=== PATIENT | female | born 1975 | race Caucasian/White ===

== ENCOUNTER 2017-08-10 07:01 | Emergency (ER) | payer BC ==
[2017-08-10] MEDS ORDERED: ASPIRIN PO ONE (07:47)
[2017-08-10] MEDS ORDERED: TORADOL IV ONE (11:11)
--- NOTE | 2017-08-10 11:16 | Emergency Department Report ---
Blank Doc - Documentation Documentation: 42 yo female with no past medical history presents to the hospital complaining of chest pain and headache since 5 AM. Pain is across the upper chest described as a pressure that is constant but improved and no longer present. Pain initially 5/10 upon arrival. Patient also complains of posterior headache without neck pain. She denies nausea, vomiting, or diaphoresis. She does complain of some mild shortness of breath. She denies calf tenderness, edema, recent travel, control use, history of PE/DVT. She denies tobacco use but does have a family history of CAD. Her mother required a stent in her late 50s. Patient received IV and aspirin in route. Exam Neck: No meningismus Neuro: No motor or sensory deficit Chest: Nontender Legs: no calf tenderness or edema Toradol ordered for pain Labs pending Chest x-ray pending EKG: Sinus rate [address] [place] or LVH. Midlevel to follow
[2017-08-10 11:57] LABS: Chol/HDL Ratio 4.4 %
[2017-08-10 11:58] LABS: Hemoglobin 12.6 gm/dl (10.1-14.3); Mean Corpuscular HGB Conc 34 % (30-34); Mean Corpuscular Hemoglobin 32 pg (28-32); Mean Corpuscular Volume 93 fl (79-97); Platelet Count 273 K/mm3 (140-440); Red Blood Count 3.96 M/mm3 (3.65-5.03); Red Cell Distribution Width 12.7 % (13.2-15.2)
[2017-08-10 12:40] LABS: BUN/Creatinine Ratio 20; Blood Urea Nitrogen 12 mg/dL (7-17); Calcium 9.1 mg/dL (8.4-10.2); Hemolysis Index 20
--- NOTE | 2017-08-10 12:51 | XRay Report ---
CHEST 2 VIEWS INDICATION: Chest pain. COMPARISON: None similar at this institution. FINDINGS: PA and lateral chest radiographs demonstrate normal cardiomediastinal silhouette. Clear lungs. Intact bones. CONCLUSION: No acute disease in the chest. Thank you for the opportunity to participate in this patient's care.
[2017-08-10 12:58] LABS: Platelet Estimate Consistent w Auto; RBC Morphology Normal; Total Cells Counted 100
--- NOTE | 2017-08-10 13:58 | Emergency Department Report ---
ED Chest Pain HPI - General Chief Complaint: Chest Pain Stated Complaint: CHEST PAIN Time Seen by Provider: 08/10/17 11:03 Source: patient, EMS Mode of arrival: Ambulatory Limitations: Language Barrier - History of Present Illness Initial Comments: This is a 42-year-old female nontoxic, well nourished in appearance, no acute signs of distress presents to the ED with c/o of chest pain and headache that started this morning at 5 AM. Patient describes chest pain as aching across upper chest. Patient currently stated in the ED that her headache and chest pain has resolved since medical treatment. Patient stated initially the pain was a 5 out of 10 upon arrival. Patient otherwise denies any radiation of pain. Patient denies any calf pain or calf tenderness. Denies any fever, chills, nausea, vomiting, stiff neck, neck pain, abdominal pain, back pain, numbness or tingling. Patient denies any recent travels or long car ride. Patient describes headache as a gradual onset but denies any thunderclap headache. Patient denies any visual changes. Patient stated that all symptoms has resolved. Patient denies any allergies or significant past medical history. Patient denies taking control. Patient denies any recent traumas, long car rides, or recent hospital stays. MD Complaint: chest pain -: This morning Pain Location: other (upper chest) Pain Radiation: none Severity: mild Quality: aching Consistency: now resolved Improves With: nothing Worsens With: nothing re: denies: nausea, vomting, diaphoresis, dyspnea, sense of impending doom Other Symptoms: denies: cough, fever, syncope, rash, acid taste in mouth, leg swelling, palpitations, burping Treatments Prior to Arrival: aspirin Aspirin use within the Past 7 Days: (0) No - Related Data On Oral Contraceptives: No Previous Rx's Medication Instructions Recorded Last Taken Type Ibuprofen [Motrin] 600 mg PO Q8H PRN #30 tablet 08/10/17 Unknown Rx Allergies Allergy/AdvReac Type Severity Reaction Status Date / Time No Known Allergies Allergy Verified 08/10/17 11:10 Heart Score - HEART Score History: Slightly suspicious EKG: Normal Age: < 45 Risk factors: No known risk factors Troponin: < normal limit HEART Score: 0 ED Review of Systems ROS: Stated complaint: CHEST PAIN Other details as noted in HPI Constitutional: denies: chills, fever Eyes: denies: eye pain, eye discharge, vision change ENT: denies: ear pain, throat pain Respiratory: denies: cough, shortness of breath, wheezing Cardiovascular: chest pain. denies: palpitations Endocrine: no symptoms reported Gastrointestinal: denies: abdominal pain, nausea, diarrhea Genitourinary: denies: urgency, dysuria, discharge Musculoskeletal: denies: back pain, joint swelling, arthralgia Skin: denies: rash, lesions Neurological: headache. denies: weakness, paresthesias Psychiatric: denies: anxiety, depression Hematological/Lymphatic: denies: easy bleeding, easy bruising ED Past Medical Hx - Past Medical History Previous Medical History?: Yes Additional medical history: Vaginal delivery x 2 - Surgical History Past Surgical History?: No - Social History Smoking Status: Never Smoker Substance Use Type: None - Medications Home Medications: Home Medications Medication Instructions Recorded Confirmed Last Taken Type Ibuprofen [Motrin] 600 mg PO Q8H PRN #30 tablet 08/10/17 Unknown Rx ED Physical Exam - General Limitations: Language Barrier General appearance: alert, in no apparent distress - Head Head exam: Present: atraumatic, normocephalic - Eye Eye exam: Present: normal appearance, PERRL, EOMI Pupils: Present: normal accommodation - ENT ENT exam: Present: normal exam, normal orophraynx, mucous membranes moist - Neck Neck exam: Present: normal inspection, full ROM. Absent: tenderness, meningismus, lymphadenopathy - Respiratory Respiratory exam: Present: normal lung sounds bilaterally. Absent: respiratory distress, wheezes, rales, rhonchi, stridor, chest wall tenderness, accessory muscle use, decreased breath sounds, prolonged expiratory - Cardiovascular Cardiovascular Exam: Present: regular rate, normal rhythm, normal heart sounds. Absent: bradycardia, tachycardia, irregular rhythm, systolic murmur, diastolic murmur, rubs, gallop - GI/Abdominal GI/Abdominal exam: Present: soft, normal bowel sounds. Absent: distended, tenderness, guarding, rebound, rigid, diminished bowel sounds - Rectal Rectal exam: Present: deferred - Extremities Exam Extremities exam: Present: normal inspection, full ROM, normal capillary refill. Absent: tenderness - Back Exam Back exam: Present: normal inspection, full ROM. Absent: tenderness, CVA tenderness (R), CVA tenderness (L), muscle spasm, paraspinal tenderness, vertebral tenderness, rash noted - Neurological Exam Neurological exam: Present: alert, oriented X3, CN II-XII intact, normal gait - Expanded Neurological Exam Expanded Patient oriented to: Present: person, place, time Cranial nerves: EOM's Intact: Normal, Gag Reflex: Normal, Facial Sensation: Normal Cerebellar function: Finger to Nose: Normal Upper motor neuron: Pronator Drift: Normal, Sensory Extinction: Normal Sensory exam: Upper Extremity Light Touch: Normal, Upper Extremity Pin Prick: Normal, Upper Extremity Temperature: Normal, UE 2 Point Discrimination: Normal, Lower Extremity Light Touch: Normal, Lower Extremity Pin Prick: Normal, Lower Extremity Temperature: Normal, LE 2 Point Discrimination: Normal Motor strength exam: RUE: 5, LUE: 5, RLE: 5, LLE: 5 Best Eye Response ([place]): (1) no response Best Motor Response ([place]): (6) obeys commands Best Verbal Response ([place]): (5) oriented [place] Total: 12 - Psychiatric Psychiatric exam: Present: normal affect, normal mood - Skin Skin exam: Present: warm, dry, intact, normal color. Absent: rash ED Course Vital Signs 08/10/17 08/10/17 07:42 11:52 Temperature 98.1 F Pulse Rate 87 Respiratory 18 18 Rate Blood Pressure 113/69 O2 Sat by Pulse 95 Oximetry - Reevaluation(s) Reevaluation #1: 08/10/17 13:56 Patient is speaking in full sentences with no signs of distress noted. - Consultations Consultation #1: 08/10/17 13:56 Patient has been consulted with Dr. Canales about patient history, physical exam, and labs and examined and screened patient and agrees to ED plan of care and discharge plan of care. PARVIZ score - Parviz Score Age > 65: (0) No Aspirin use within the Past 7 Days: (0) No 3 or more CAD Risk Factors: (0) No 2 or more Angina events in past 24 hrs: (0) No Known CAD with more than 50% Stenosis: (0) No Elevated Cardiac Markers: (0) No ST Deviation Greater than 0.5mm: (0) No PARVIZ Score: 0 ED Medical Decision Making - Lab Data Result diagrams: 08/10/17 08:11 08/10/17 10:40 - Medical Decision Making This is a 42-year-old female that presents with chest pain and headache. Patient is stable was examined by me and Dr. Canales. EKG normal sinus rhythm. Chest x-ray within normal limits. Negative troponin. PARVIZ and heart score is 0. Wells Critzer earlier for DVT/SVT 0 point. Patient currently states he is asymptomatic. Normal neurological exam. Patient is discharged with Motrin. She was instructed to Follow-up with a primary care/installation helper doctor in 3-5 days or if symptoms worsen and continue return to emergency room as soon as possible. At time of discharge, the patient does not seem toxic or ill in appearance. No acute signs of distress noted. Patient agrees to discharge treatment plan of care. No further questions noted by the patient. Critical care attestation.: If time is entered above; I have spent that time in minutes in the direct care of this critically ill patient, excluding procedure time. ED Disposition Clinical Impression: Chest pain Qualifiers: Chest pain type: unspecified Qualified Code(s): R07.9 - Chest pain, unspecified Headache Qualifiers: Headache type: unspecified Headache chronicity pattern: acute headache Disposition: DC- TO HOME OR SELFCARE Is pt being admited?: No Does the pt Need Aspirin: No Condition: Stable Instructions: Chest Pain (ED), Acute Headache (ED) Additional Instructions: Follow-up with a primary care/installation helper doctor in 3-5 days or if symptoms worsen and continue return to emergency room as soon as possible. Prescriptions: Ibuprofen [Motrin] 600 mg PO Q8H PRN #30 tablet PRN Reason: Pain Referrals: PRIMARY MD JO-ANN [Primary Care Provider] - 3-5 Days ITALIA WYNN MD [Staff Physician] - 3-5 Days SHIRLEY MALLORY MD [Staff Physician] - 3-5 Days [facility] [Outside] - 3-5 Days [facility] [Outside] - 3-5 Days Forms: Work/School Release Form(ED)
[2017-08-10 14:17] VITALS: BP 107/66
== END 2017-08-10 14:16 | disposition home or self-care (01) ==
LOC: ED 07:01
DX: R07.9 Chest pain, unspecified (principal); R51 Headache
CPT/HCPCS: 36415; 71046; 80048; 80061; 84484; 85007; 85025; 93005; 93010; 96374; 99284; J1885